=== PATIENT | male | born 1990 | race Caucasian/White ===

== ENCOUNTER 2017-06-25 23:11 | Emergency (ER) | payer SELFPAY ==
[2017-06-25 23:23] VITALS: BP 128/66
[2017-06-25] MEDS ORDERED: Lidocaine/EPINEPHrine/Tetracaine Soln 1 ML TOP ONE (23:29)
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
[2017-06-25] MEDS ORDERED: Bupivacaine 0.5% 10 ML SDV INJECT ONE (23:53)
[2017-06-25] MEDS ORDERED: Lidocaine 1.5% with EPINEPHrine 1:200,000 5 ML Amp INJECT ONE (23:53)
[2017-06-26] MEDS ORDERED: Lidocaine 1% with EPINEPHrine 1:100,000 20 ML MDV INJECT ONE
[2017-06-26] MEDS ORDERED: Lidocaine 1% with EPINEPHrine 1:100,000 20 ML MDV ONE (00:06)
== END 2017-06-26 00:40 | disposition home or self-care (01) ==
LOC: JD.ED 23:11
DX: S01.511A Laceration without foreign body of lip, initial encounter (principal); W20.8XXA Other cause of strike by thrown, projected or falling object, initial encounter; Y93.89 Activity, other specified
CPT/HCPCS: 12011; 99283; A9270; 99282-25